=== PATIENT | male | born 1975 | race Caucasian/White ===

== ENCOUNTER 2022-07-15 13:41 | Emergency (ER) | payer MEDICARE, MEDICAID ==
[2022-07-15 15:46] VITALS: BP 125/53; PULSE 59
[2022-07-15 16:17] LABS: ESTIMATED GFR 30 mL/min (>60)
[2022-07-15] MEDS ORDERED: HYDROmorphone 0.5 MG/0.5 ML Syringe IVPUSH ONE (16:53)
[2022-07-15] MEDS ORDERED: Sodium Chloride 0.9% 1,000 ML IV SCH ×2 (17:00→18:30)
[2022-07-15] MEDS ORDERED: Sodium Polystyrene Sulfonate 15 GM/60 ML Susp 60 ML Bot PO ONE (18:22)
== END 2022-07-15 19:37 | disposition home or self-care (01) ==
LOC: JP.ED 13:41
DX: R10.12 Left upper quadrant pain (principal); E87.5 Hyperkalemia; I10 Essential (primary) hypertension; E11.9 Type 2 diabetes mellitus without complications; E66.9 Obesity, unspecified; Z68.41 Body mass index [BMI] 40.0-44.9, adult; Z88.8 Allergy status to other drugs, medicaments and biological substances; Z79.82 Long term (current) use of aspirin; Z79.899 Other long term (current) drug therapy; Z91.018 Allergy to other foods
CPT/HCPCS: 36415; 71045; 74176; 80053; 81001; 83605; 84132; 85025; 85379; 86140; 99284; A9270

== ENCOUNTER 2022-07-23 13:38 | Emergency (ER) | payer MEDICARE, MEDICAID ==
[2022-07-23] MEDS ORDERED: Sodium Chloride 0.9% 10 ML Syringe FLUSH PRN (13:42)
[2022-07-23] MEDS ORDERED: Lactated Ringers 1,000 ML IV ONE ×2 (13:42→15:37)
[2022-07-23] MEDS ORDERED: Vancomycin 2 GM in Sodium Chloride 0.9% 500 ML IV ONE (13:44)
[2022-07-23] MEDS ORDERED: Cefepime 2 GM in Sodium Chloride 0.9% 50 ML IV ONE ×2 (13:45→14:45)
[2022-07-23] MEDS ORDERED: Clindamycin Phosphate in D5W 900 MG in Premix Bag 1 BAG IV ONE ×2 (14:27)
[2022-07-23] MEDS: HYDROmorphone 1 MG/ML Syringe IVPUSH ONE ×2 (15:00→15:22)
[2022-07-23] MEDS ORDERED: Gabapentin 300 MG Cap PO ONE (15:33)
[2022-07-23] MEDS ORDERED: Methadone 10 MG Tab PO ONE (15:35)
[2022-07-23] MEDS ORDERED: Pregabalin 75 MG Cap PO ONE (15:35)
[2022-07-23] MEDS ORDERED: oxyCODONE 5 MG Tab PO ONE (15:36)
[2022-07-23] MEDS ORDERED: Methadone 5 MG Tab PO ONE (16:00)
[2022-07-23 16:11] VITALS: BP 114/48; PULSE 95
== END 2022-07-23 17:00 | disposition home or self-care (01) ==
LOC: JP.ED 13:38
DX: A41.9 Sepsis, unspecified organism (principal); R65.20 Severe sepsis without septic shock; N17.9 Acute kidney failure, unspecified; E11.628 Type 2 diabetes mellitus with other skin complications; L08.9 Local infection of the skin and subcutaneous tissue, unspecified; M79.89 Other specified soft tissue disorders; I10 Essential (primary) hypertension; D64.9 Anemia, unspecified; E66.9 Obesity, unspecified; Z68.30 Body mass index [BMI] 30.0-30.9, adult; Z91.018 Allergy to other foods; Z88.8 Allergy status to other drugs, medicaments and biological substances; Z79.82 Long term (current) use of aspirin; Z79.899 Other long term (current) drug therapy; Z79.4 Long term (current) use of insulin; Z20.822 Contact with and (suspected) exposure to COVID-19
CPT/HCPCS: 36415; 73630; 80048; 82803; 83605; 86850; 86900; 86901; 87040; 87070; 87077; 87186; 87205; 93005; 96365; 96367; 99285; A9270; J0692; J3370; J3490; J7040; J7120; U0002; J1170

== ENCOUNTER 2024-01-28 06:05 | Day surgery (SDC) | payer MEDICARE, MEDICAID ==
[2024-01-28] MEDS ORDERED: fentaNYL 50 MCG/ML SDV ONE (07:02)
[2024-01-28] MEDS ORDERED: Midazolam 1 MG/ML 2 ML SDV ONE (07:02)
[2024-01-28] MEDS ORDERED: Propofol 200 MG/20 ML SDV ONE ×2 (07:02→08:23)
[2024-01-28] MEDS: Sodium Chloride 0.9% 1,000 ML IV SCH (07:11)
[2024-01-28 09:44] VITALS: BP 142/76; PULSE 58
== END 2024-01-28 09:48 | disposition home or self-care (01) ==
LOC: JP.SDS 06:05
PROVIDERS: ATTEND Surgery
DX: D12.3 Benign neoplasm of transverse colon (principal); K64.8 Other hemorrhoids; F17.200 Nicotine dependence, unspecified, uncomplicated
CPT/HCPCS: 45380; 45398; J2250; J2704; J3010; J7030; 00812-QZ